=== PATIENT | female | born 1945 | race African-American/Black ===

== ENCOUNTER 2017-04-30 19:41 | Observation (INO) | payer BC ==
[~2017-04-30] VITALS: Ht 167.6 cm; Wt 94.3 kg
[2017-04-30] MEDS ORDERED: Sodium Chloride 500ML 500 ML IV ONE (19:42)
[2017-04-30 19:44] VITALS: BP 150/87
[2017-04-30 20:38] LABS: BASOPHILS % (AUTO) 1.1 % (0.0-2.0); EOSINOPHILS % (AUTO) 1.6 % (0.0-3.0); HEMATOCRIT 45.6 % (37.0-47.0); HEMOGLOBIN 14.1 G/DL (12.0-16.0); LYMPHOCYTES % (AUTO) 49.4 % (20.0-45.0); MEAN CORPUSCULAR VOLUME 88 FL (80-99); MONOCYTES % (AUTO) 9.3 % (1.0-10.0); NEUTROPHILS % (AUTO) 38.5 % (45.0-75.0); PLATELET COUNT 200 K/UL (150-450); RED BLOOD COUNT 5.16 M/UL (4.20-5.40); RED CELL DISTRIBUTION WIDTH 12.1 % (11.6-14.8); WHITE BLOOD COUNT 5.1 K/UL (4.8-10.8)
[2017-04-30 20:51] LABS: INR 0.9 (0.9-1.1)
[2017-04-30 20:52] LABS: ANION GAP 9 mmol/L (5-15); BLOOD UREA NITROGEN 13 mg/dL (7-18); CARBON DIOXIDE 28 MMOL/L (21-32); CHLORIDE 100 MMOL/L (98-107); CREATININE 0.9 MG/DL (0.55-1.30); POTASSIUM 3.5 MMOL/L (3.5-5.1); SODIUM 137 MMOL/L (136-145)
[2017-04-30 21:00] VITALS: BP 152/62
[2017-04-30 21:06] LABS: ALANINE AMINOTRANSFERASE 32 U/L (12-78); ALBUMIN 3.6 G/DL (3.4-5.0); ALBUMIN/GLOBULIN RATIO 0.9 (1.0-2.7); ALKALINE PHOSPHATASE 78 U/L (46-116); ASPARTATE AMINO TRANSFERASE 26 U/L (15-37); BILIRUBIN,TOTAL 0.2 MG/DL (0.2-1.0); CHOLESTEROL 153 MG/DL (< 200); CKMB 0.5 NG/ML (0.0-3.6); CREATINE KINASE 123 U/L (26-308); HDL CHOLESTEROL 35 MG/DL (40-60); TRIGLYCERIDES 308 MG/DL (30-150)
[2017-04-30 21:12] LABS: APPEARANCE,URINE CLEAR; BILIRUBIN, URINE NEGATIVE (NEGATIVE); COLOR,URINE PALE YELLOW; GLUCOSE, URINE (UA) NEGATIVE (NEGATIVE); KETONES,URINE NEGATIVE (NEGATIVE); LEUKOCYTE ESTERASE ,URINE NEGATIVE (NEGATIVE); NITRITE,URINE NEGATIVE (NEGATIVE); PH,URINE 7 (4.5-8.0); PROTEIN,URINE NEGATIVE (NEGATIVE); UROBILINOGEN,URINE NORMAL MG/DL (0.0-1.0)
[2017-04-30] MEDS ORDERED: METOPROLOL SUCC25 MG ORAL (21:16)
[2017-04-30] MEDS ORDERED: HYDROCHLOROTH12.5 M2 ORAL (21:16)
[2017-04-30] MEDS ORDERED: SIMVASTATIN40 MG ORAL (21:17)
[2017-04-30] MEDS ORDERED: BENZONATATE200 MG ORAL (21:18)
[2017-04-30] MEDS ORDERED: Morphine Sulfate 2mg/ml Inj IVP PRN (22:00)
[2017-04-30] MEDS ORDERED: Milk of Magnesia 30ml Ud ORAL PRN (22:00)
[2017-04-30] MEDS ORDERED: Metoprolol 25mg tab ORAL SCH (22:00)
[2017-04-30] MEDS ORDERED: Nitroglycerin Subl 0.4mg tab SL PRN (22:00)
--- NOTE | 2017-04-30 22:43 | Emergency Room Report ---
History of Present Illness General Chief Complaint: Chest Pain Source: Patient, EMS Present Illness HPI Patient presents with complaints of midsternal chest pain Patient reports that she was at home at rest when the pain came on She has felt some relief with nitroglycerin by paramedics Describes the pain as 3/10 heaviness Denies any vomiting patient did have some shortness of breath however denies any pleurisy Denies any back or flank pain Patient reports that she's had some extensive workup to figure out the chest pain However they have not been able to find the problem Denies any recent travel Allergies: Coded Allergies: No Known Allergies (Unverified , 04/30/17) Patient History Past Medical History: see triage record Past Surgical History: none Pertinent Family History: none Last Menstrual Period: na Now: No Reviewed Nursing Documentation: PMH: Agreed, PSxH: Agreed Nursing Documentation-PMH Hx Hypertension: Yes Review of Systems All Other Systems: negative except mentioned in HPI Physical Exam Vital Signs Date Time Temp Pulse Resp B/P (MAP) Pulse Ox O2 Delivery O2 Flow Rate FiO2 04/30/17 19:35 99.0 94 18 150/87 100 Room Air Sp02 EP Interpretation: reviewed, normal General Appearance: well appearing, no apparent distress Head: normocephalic, atraumatic Eyes: bilateral eye PERRL, bilateral eye EOMI ENT: hearing grossly normal, normal pharynx, TMs + canals normal, uvula midline Neck: full range of motion, supple, no meningismus, no bony tend Respiratory: lungs clear, normal breath sounds, no rhonchi, no respiratory distress, no retraction, no accessory muscle use Cardiovascular #1: normal peripheral pulses, regular rate, rhythm, no edema, no gallop, no JVD, no murmur Gastrointestinal: normal bowel sounds, non tender, soft, no mass, no organomegaly, non-distended, no guarding, no hernia, no pulsatile mass, no rebound Genitourinary: no CVA tenderness Musculoskeletal: normal inspection Neurologic: oriented x3, responsive, optical sales associate III-XII nml as tested, motor strength/ tone normal, sensory intact Psychiatric: mood/affect normal Skin: normal color, no rash, warm/dry, palpation normal Lymphatic: normal inspection, no adenopathy Medical Decision Making Diagnostic Impression: Primary Impression: Acute coronary syndromes ER Course Patient is a fairly complex patient with multiple differential to consideration including but not limited to cardiac cardiopulmonary and vascular emergencies Patient initial troponin appropriate EKG does not show any acute pathology Given the patient's complaint and description patient was admitted for further inpatient care Labs Test 04/30/17 20:25 04/30/17 21:00 White Blood Count 5.1 K/UL (4.8-10.8) Red Blood Count 5.16 M/UL (4.20-5.40) Hemoglobin 14.1 G/DL (12.0-16.0) Hematocrit 45.6 % (37.0-47.0) Mean Corpuscular Volume 88 FL (80-99) Mean Corpuscular Hemoglobin 27.2 PG (27.0-31.0) Mean Corpuscular Hemoglobin Concent 30.8 G/DL (32.0-36.0) Red Cell Distribution Width 12.1 % (11.6-14.8) Platelet Count 200 K/UL (150-450) Mean Platelet Volume 10.1 FL (6.5-10.1) Neutrophils (%) (Auto) 38.5 % (45.0-75.0) Lymphocytes (%) (Auto) 49.4 % (20.0-45.0) Monocytes (%) (Auto) 9.3 % (1.0-10.0) Eosinophils (%) (Auto) 1.6 % (0.0-3.0) Basophils (%) (Auto) 1.1 % (0.0-2.0) Prothrombin Time 9.1 SEC (9.30-11.50) Prothromb Time International Ratio 0.9 (0.9-1.1) Activated Partial Thromboplast Time 29 SEC (23-33) Sodium Level 137 MMOL/L (136-145) Potassium Level 3.5 MMOL/L (3.5-5.1) Chloride Level 100 MMOL/L (98-107) Carbon Dioxide Level 28 MMOL/L (21-32) Anion Gap 9 mmol/L (5-15) Blood Urea Nitrogen 13 mg/dL (7-18) Creatinine 0.9 MG/DL (0.55-1.30) Estimat Glomerular Filtration Rate mL/min (>60) Glucose Level 167 MG/DL (74-106) Calcium Level 8.0 MG/DL (8.5-10.1) Total Bilirubin 0.2 MG/DL (0.2-1.0) Aspartate Amino Transf (AST/SGOT) 26 U/L (15-37) Alanine Aminotransferase (ALT/SGPT) 32 U/L (12-78) Alkaline Phosphatase 78 U/L (46-116) Total Creatine Kinase 123 U/L (26-308) Creatine Kinase MB 0.5 NG/ML (0.0-3.6) Creatine Kinase MB Relative Index 0.4 Troponin I 0.042 ng/mL (0.000-0.056) Pro-B-Type Natriuretic Peptide 37 pg/mL (0-125) Total Protein 7.4 G/DL (6.4-8.2) Albumin 3.6 G/DL (3.4-5.0) Globulin 3.8 g/dL Albumin/Globulin Ratio 0.9 (1.0-2.7) Triglycerides Level 308 MG/DL (30-150) Cholesterol Level 153 MG/DL (< 200) LDL Cholesterol 68 mg/dL (<100) HDL Cholesterol 35 MG/DL (40-60) Cholesterol/HDL Ratio 4.4 (3.3-4.4) Urine Color Pale yellow Urine Appearance Clear Urine pH 7 (4.5-8.0) Urine Specific [place] 1.005 (1.005-1.035) Urine Protein Negative (NEGATIVE) Urine Glucose (UA) Negative (NEGATIVE) Urine Ketones Negative (NEGATIVE) Urine Occult Blood Negative (NEGATIVE) Urine Nitrite Negative (NEGATIVE) Urine Bilirubin Negative (NEGATIVE) Urine Urobilinogen Normal MG/DL (0.0-1.0) Urine Leukocyte Esterase Negative (NEGATIVE) EKG Diagnostic Results Rate: normal Rhythm: NSR ST Segments: no acute changes Rhythm Strip Diag. Results EP Interpretation: yes Rate: 77 Rhythm: NSR, no PVC's, no ectopy Chest X-Ray Diagnostic Results Chest X-Ray Diagnostic Results : Chest X-Ray Ordered: Yes # of Views/Limited/Complete: 1 View Indication: Chest Pain EP Interpretation: Yes Interpretation: no consolidation, no effusion, no pneumothorax Impression: No acute disease Electronically Signed by: Cristopher García DO Last Vital Signs Date Time Temp Pulse Resp B/P (MAP) Pulse Ox O2 Delivery O2 Flow Rate FiO2 04/30/17 19:44 94 18 Room Air 04/30/17 19:44 99.0 150/87 100 Status: improved Disposition: ADMITTED INPATIENT Condition: Serious Referrals: JERONIMO HERNANDEZ (PCP) CRISTOPHER GARCÍA D.O. Apr 30, 2017 22:43
[2017-04-30 23:00] VITALS: BP 163/71
[2017-04-30] MEDS ORDERED: Enoxaparin 40mg Inj SUBQ SCH (23:00)
[2017-05-01] VITALS (10 sets, daily range): BP systolic 128–157; BP diastolic 46–78
[2017-05-01 05:24] LABS: ANION GAP 10 mmol/L (5-15); BLOOD UREA NITROGEN 10 mg/dL (7-18); CALCIUM 7.6 MG/DL (8.5-10.1); CARBON DIOXIDE 27 MMOL/L (21-32); CHLORIDE 104 MMOL/L (98-107); CHOLESTEROL 136 MG/DL (< 200); CREATININE 0.8 MG/DL (0.55-1.30); HDL CHOLESTEROL 34 MG/DL (40-60); POTASSIUM 3.3 MMOL/L (3.5-5.1); SODIUM 141 MMOL/L (136-145); TRIGLYCERIDES 204 MG/DL (30-150)
--- NOTE | 2017-05-01 08:48 | Diagnostic Imaging Report ---
Indication: Chest pain Technique: XRAY Chest 1v Comparison: None Findings: Heart is mildly enlarged. Atherosclerotic calcifications noted in the aortic arch. There is no focal airspace consolidation, pleural effusion or pneumothorax. No acute osseous abnormality is seen. Impression: Mild cardiomegaly.
[2017-05-01] MEDS ORDERED: Aspirin Baby 81mg ORAL SCH (09:00)
[2017-05-01] MEDS ORDERED: Metoprolol Succinate XL 25mg tab ORAL SCH (09:00)
[2017-05-01] MEDS ORDERED: Docusate 100mg cap ORAL SCH (09:00)
--- NOTE | 2017-05-01 09:54 | Diagnostic Imaging Report ---
Indication: Chest pain Technique: XRAY Chest 1v Comparison: 04/30/2017 Findings: Heart is mildly enlarged. Atherosclerotic calcifications noted in the aortic arch. There is no focal airspace consolidation, pleural effusion or pneumothorax. No acute osseous abnormality is seen. Impression: No definite focal consolidation.
[2017-05-01] MEDS: Benzonatate 100mg Perles ORAL SCH ×2 (10:19→13:00)
[2017-05-01 12:12] LABS: CREATINE KINASE 90 U/L (26-308)
--- NOTE | 2017-05-01 15:46 | History and Physical Report ---
DATE OF ADMISSION: 04/30/2017 CHIEF COMPLAINT AND REASON FOR HOSPITALIZATION: The patient admitted for evaluation of chest pain. HISTORY OF PRESENT ILLNESS: The patient has a history of hypertension and hyperlipidemia. She presents with a chest pain in the left parasternal area lasting about 15 minutes. She states she woke up from her sleep and had a chest pain. She has also had cough and bronchitis and was started on treatment recently, I think she is treated for influenza. She apparently has had a negative stress test, but the details of that is not available at this time. PAST SURGICAL HISTORY: None. MEDICATIONS: Include hydrochlorothiazide, metoprolol, simvastatin, and apparently . It is not clear if she is taking Tamiflu or not. ALLERGIES: None known. HABITS: She is a nondrinker and nonsmoker. No use of illicit drugs. REVIEW OF SYSTEMS: HEAD EYES, EARS, NOSE, AND THROAT: The patient's hearing is good. ENDOCRINE: No known diabetes or thyroid disease. PULMONARY: No asthma, TB, or chronic cough. She has cough this week. CARDIAC: See above. GASTROINTESTINAL: No gastrointestinal bleeding or ulcers. GENITOURINARY: No dysuria, hematuria, or kidney stones. NEUROLOGIC: No CVA, syncope, or seizures. PHYSICAL EXAMINATION: GENERAL: The patient is an alert lady, in no acute distress. VITAL SIGNS: Temperature 96.4 degrees, pulse 67, respirations 17, blood pressure 131/66, pulse ox 96. HEAD EYES, EARS, NOSE, AND THROAT: Sclerae are nonicteric. Ocular motions intact in all directions. Oral mucosa moist. NECK: No adenopathy or thyroid enlargement. LUNGS: Clear. HEART: Regular rhythm. No murmur. ABDOMEN: Soft without organomegaly or masses. EXTREMITIES: No edema, cyanosis, or clubbing. NEUROLOGIC: She is alert and oriented. Cranial nerves are intact. PERTINENT LABORATORY DATA: Show normal electrolytes. Glucose 167 and 107. Troponin 0.042 and 0.130. Cholesterol 153. IMPRESSION: 1. Chest pain, possible acute coronary syndrome, possible noncardiac syndrome with false positive troponin. 2. History of hypertension. 3. History of hyperlipidemia. PLAN: We will get further troponins and assess the patient for cardiac disease. She is clinically stable at this time. If her troponins are unremarkable, we will arrange discharge as an outpatient followup. Anderson Araujo M.D. DR: Valentina JOB#: [id number] CC:
--- NOTE | 2017-05-01 21:07 | Cardiology Progress Note ---
Assessment/Plan Assessment/Plan The patient is seen and examined, full consult note is dictated. Objective Last 24 Hour Vital Signs Date Time Temp Pulse Resp B/P (MAP) Pulse Ox O2 Delivery O2 Flow Rate FiO2 05/01/17 16:00 66 05/01/17 16:00 96.6 66 18 144/78 100 Room Air 05/01/17 12:00 96.1 61 18 132/77 97 Room Air 05/01/17 12:00 63 05/01/17 10:14 70 133/75 05/01/17 09:23 65 70 74 05/01/17 08:00 96.4 67 17 131/66 96 Room Air 05/01/17 08:00 66 05/01/17 07:40 98.8 65 14 149/67 94 Room Air 05/01/17 07:21 65 14 149/67 94 Room Air 05/01/17 05:59 98.8 69 13 138/59 93 Room Air 05/01/17 04:26 98.6 65 14 128/72 36 Room Air 05/01/17 02:00 98.6 68 14 136/46 95 Room Air 05/01/17 01:10 95 153/75 05/01/17 01:05 96 157/74 05/01/17 01:00 83 145/62 04/30/17 23:00 98.9 73 17 163/71 99 Room Air Intake and Output 04/30/17 05/01/17 19:00 07:00 Intake Total 0 ml Balance 0 ml Intake Oral 0 ml Laboratory Tests Test 05/01/17 04:18 05/01/17 11:40 Sodium Level 141 MMOL/L (136-145) Potassium Level 3.3 MMOL/L (3.5-5.1) L Chloride Level 104 MMOL/L (98-107) Carbon Dioxide Level 27 MMOL/L (21-32) Anion Gap 10 mmol/L (5-15) Blood Urea Nitrogen 10 mg/dL (7-18) Creatinine 0.8 MG/DL (0.55-1.30) Estimat Glomerular Filtration Rate mL/min (>60) Glucose Level 107 MG/DL (74-106) H Calcium Level 7.6 MG/DL (8.5-10.1) L Troponin I 0.130 ng/mL (0.000-0.056) 0.096 ng/mL (0.000-0.056) Triglycerides Level 204 MG/DL (30-150) H Cholesterol Level 136 MG/DL (< 200) LDL Cholesterol 63 mg/dL (<100) HDL Cholesterol 34 MG/DL (40-60) L Cholesterol/HDL Ratio 4.0 (3.3-4.4) Thyroid Stimulating Hormone (TSH) 2.712 uiU/mL (0.358-3.740) Total Creatine Kinase 90 U/L (26-308) ROXY TAY May 01, 2017 21:07
[2017-05-01] MEDS ORDERED: Atorvastatin 80mg tab ORAL SCH (22:00)
[2017-05-02] MEDS ORDERED: Metoprolol Succinate XL 50mg tab ORAL SCH (09:00)
--- NOTE | 2017-05-03 05:00 | Discharge Summary ---
DATE OF ADMISSION: 04/30/2017 DATE OF DISCHARGE: 05/01/2017 PERTINENT HISTORY: The patient presented to the emergency room with chest pain. Pertinent physical findings are unremarkable, see my dictation. COURSE IN THE HOSPITAL: The patient had serial troponins 0.042, 0.130 and 1.096. Potassium was 3.3, and it was repleted. She was seen by Dr. Adame in Cardiology consultation. The patient had a prior nuclear medicine cardiac stress test at [facility], which was reviewed after she came in and was negative and this was done, I believe within the last year. The description of her chest pain was atypical for angina and she was discharged home in stable condition. FINAL DIAGNOSES: 1. Chest pain possible acute coronary syndrome with atypical pain and negative stress test. 2. History of hypertension. 3. History of hyperlipidemia. 4. Hypokalemia. 5. History of flu-like syndrome several days prior to this admission. DISCHARGE DISPOSITION: She is discharged home on a regular diet as tolerated and the same medications as on admission. She is to follow up with her private physician at [facility] within the next week. Anderson Araujo M.D. DR: SAIDA JOB#: [id number] CC:
--- NOTE | 2017-05-05 19:32 | Cardiology Report ---
APPROVED REPORT EKG Measurement Heart [id number] Sinus rhythm with 1st degree AV block Low voltage QRS Cannot rule out Anterior infarct, age undetermined Abnormal ECG
== END 2017-05-01 18:30 | disposition home or self-care (01) ==
LOC: EDBD 19:41 → EMR 20:00 → 2E 20:46 → INTOOBSV 20:46 → EDBEDREQ 05-01 03:42 → 2E 05-01 08:10
DX: R07.89 Other chest pain (principal); I10 Essential (primary) hypertension; E78.5 Hyperlipidemia, unspecified; E87.6 Hypokalemia
CPT/HCPCS: 36415; 71010; 80048; 80053; 80061; 81003; 82550; 82553; 83880; 84443; 84484; 85025; 85610; 85730; 87040; 93005; 99285; G0378; J1650; J8499